=== PATIENT | female | born 1970 ===

== ENCOUNTER 2024-12-16 01:44 | Emergency (ER) | payer SELFPAY ==
[~2024-12-16] VITALS: Ht 175.3 cm; Wt 63.5 kg
[2024-12-16] MEDS ORDERED: HyDROXyzine HCl 25 MG Tab PO ONE (02:20)
== END 2024-12-16 02:25 | disposition home or self-care (01) ==
LOC: ER 01:44
DX: F41.9 Anxiety disorder, unspecified (principal)
CPT/HCPCS: 99282; A9270